=== PATIENT | male | born 1995 | race Caucasian/White ===

== ENCOUNTER 2017-11-26 09:04 | Emergency (ER) | payer BC, SELFPAY ==
[2017-11-26 09:08] VITALS: BP 128/77; PULSE 86; RESP 18; TEMP 36.1; O2SAT 96
--- NOTE | 2017-11-26 09:15 | DI.RAD_ITS ---
SYMPTOM/DIAGNOSIS: COUGH, WHEEZE PA AND LATERAL CHEST: 11/26 The heart is normal in size. The lungs are clear. The mediastinal structures and pleura appear intact. CONCLUSION: Normal chest.
--- NOTE | 2017-11-26 09:16 | W.ED.GENAD ---
Discharge Plan Disposition Patient Disposition: HOME Condition: Good Discharge Details Chief Complaint: RespSymp Clinical Impression: Acute bronchitis with bronchospasm ED Provider: Jaime Cabrera Home Meds and New Rx's Prescriptions: New azithromycin [Zithromax Z-Wilder] 250 mg tablet See Label Instructions .ROUTE .COMPLEX Qty: 6 RF: 0 prednisone 20 mg tablet 40 mg PO DAILY 5 Days Qty: 10 RF: 0 Discharge Instructions Instructions: Acute Bronchitis (ED) Additional Instructions: Home to rest today. Take medications as prescribed. Return for increased difficult breathing or any other acute concerns. Follow-up with regular doctor if not improved in 5 days time. Continue your efforts to decrease smoking Stand Alone Forms: Work Release Medical Decision Making 22-year-old male smoker presents with cough, congestion over days time. He is afebrile and interactive with normal oxygenation, speaking full sentences. Exam is notable for bilateral and expiratory wheeze. Patient given albuterol inhaler with instruction of spacer use at the bedside. He is referred for chest x-ray. Patient's radiograph without acute findings. He is improved with inhaler. I will prescribe him a Z-Wilder, burst dose of steroids for bronchitis with bronchospasm; discussed cessation of smoking which he states he only started 1 month ago HPI General Mode of arrival: ambulatory. Date/Time Provider Initiated Documentation: 11/26/17 09:11. Limitations to Documentation: no limitations. Information obtained by: patient. History of Present Illness 22 year old M presents to the emergency department with the chief complaint of Cough and shortness of breath, described as moderate, Quality is described as constant, and is localized to the chest. Patient started experiencing this day(s) and it has been constant. No relieving factors improve symptom(s), Other factors that worsen symptoms (Cigarettes) . Patient notes no other symptoms.. Patient did receive the following treatments prior to arrival, none HPI Narrative: 22-year-old male presents with 4-5 days of cough with production of sputum and now the development of shortness of breath. He relates that he recently started smoking 1 pack/day and this is irritated his cough as well. No fever, chest pain, recent travel or known sick contacts. Has been eating and drinking normally Related Data Home Medications Medication Instructions Recorded Confirmed azithromycin [Zithromax Z-Wilder] See Label Instructions .ROUTE 11/26/17 .COMPLEX #6 tab prednisone 40 mg PO DAILY 5 Days #10 tab 11/26/17 Previous Rx's Medication Instructions Recorded azithromycin [Zithromax Z-Wilder] See Label Instructions .ROUTE 11/26/17 .COMPLEX #6 tab prednisone 40 mg PO DAILY 5 Days #10 tab 11/26/17 Allergies Allergy/AdvReac Type Severity Reaction Status Date / Time No Known Allergies Allergy Unverified 11/26/17 09:15 General Stated Complaint: RespSymp ELIAN: 3 Review of Systems Review of Systems 8 systems reviewed and otherwise negative PFSH Social History Smoking/Tobacco Use Status: Current every day Exam Narrative Exam Narrative: GEN: awake, alert, oriented 3. Pleasant, well groomed, interactive. HEAD: Normocephalic, atraumatic ENT: Mucous membranes moist, oropharynx unremarkable, External ear exam unremarkable EYES: PERRL, EOMI NECK: Full ROM, no ELIZABETH, no menigismus CHEST/RESP: Nontender, bilateral end expiratory wheeze CARDIOVASCULAR: RRR, no murmur, rub ashlie. 2+ Rad pulse bilateral ABDOMEN: Soft, nontender, no mass. +Bowel sounds EXT: Full ROM, no edema, no rash Neuro: Grossly normal neurologic exam, conversant, interactive. Psych: Speech fluent, thoughts congruent, affect normal Course Vital Signs Temperature 36.1 C L 11/26/17 09:08 Pulse 86 11/26/17 09:08 Respiratory Rate 18 11/26/17 09:08 Blood Pressure 128/77 11/26/17 09:08 Pulse Oximetry 96 11/26/17 09:08 Temperature 36.1 C L 11/26/17 09:08 Temperature Source Skin 11/26/17 09:08 Pulse 86 11/26/17 09:08 Respiratory Rate 18 11/26/17 09:08 Respiratory Effort Short of Breath 11/26/17 09:12 Respiratory Depth Normal 11/26/17 09:12 Blood Pressure 128/77 11/26/17 09:08 Blood Pressure Position Sitting 11/26/17 09:08 Pulse Oximetry 96 11/26/17 09:08 Oxygen Delivery Method Room Air 11/26/17 09:08 Oxygen Flow Rate 0 11/26/17 09:08
--- NOTE | 2017-11-26 09:19 | ED.GENADUL_ITS ---
Discharge Plan Disposition Patient Disposition: HOME Condition: Good Discharge Details Chief Complaint: RespSymp Clinical Impression: Acute bronchitis with bronchospasm ED Provider: Jaime Cabrera Home Meds and New Rx's Prescriptions: New azithromycin [Zithromax Z-Wilder] 250 mg tablet See Label Instructions .ROUTE .COMPLEX Qty: 6 RF: 0 prednisone 20 mg tablet 40 mg PO DAILY 5 Days Qty: 10 RF: 0 Discharge Instructions Instructions: Acute Bronchitis (ED) Additional Instructions: Home to rest today. Take medications as prescribed. Return for increased difficult breathing or any other acute concerns. Follow- up with regular doctor if not improved in 5 days time. Continue your efforts to decrease smoking Stand Alone Forms: Work Release Medical Decision Making 22-year-old male smoker presents with cough, congestion over days time. He is afebrile and interactive with normal oxygenation, speaking full sentences. Exam is notable for bilateral and expiratory wheeze. Patient given albuterol inhaler with instruction of spacer use at the bedside. He is referred for chest x-ray. Patient's radiograph without acute findings. He is improved with inhaler. I will prescribe him a Z-Wilder, burst dose of steroids for bronchitis with bronchospasm; discussed cessation of smoking which he states he only started 1 month ago HPI General Mode of arrival: ambulatory . Date/Time Provider Initiated Documentation: 11/26/17 09:11 . Limitations to Documentation: no limitations . Information obtained by: patient . History of Present Illness 22 year old M presents to the emergency department with the chief complaint of Cough and shortness of breath, described as moderate, Quality is described as constant, and is localized to the chest. Patient started experiencing this day(s) and it has been constant. No relieving factors improve symptom(s ), Other factors that worsen symptoms (Cigarettes) . Patient notes no other symptoms.. Patient did receive the following treatments prior to arrival, none HPI Narrative: 22-year-old male presents with 4-5 days of cough with production of sputum and now the development of shortness of breath. He relates that he recently started smoking 1 pack/day and this is irritated his cough as well. No fever, chest pain, recent travel or known sick contacts. Has been eating and drinking normally Related Data Home Medications Medication Instructions Recorded Confirmed azithromycin [Zithromax Z-Wilder] See Label Instructions .ROUTE 11/26/17 .COMPLEX #6 tab prednisone 40 mg PO DAILY 5 Days #10 tab 11/26/17 Previous Rx's Medication Instructions Recorded azithromycin [Zithromax Z-Wilder] See Label Instructions .ROUTE 11/26/17 .COMPLEX #6 tab prednisone 40 mg PO DAILY 5 Days #10 tab 11/26/17 Allergies Allergy/AdvReac Type Severity Reaction Status Date / Time No Known Allergies Allergy Unverified 11/26/17 09:15 General Stated Complaint: RespSymp ELIAN: 3 Review of Systems Review of Systems 8 systems reviewed and otherwise negative PFSH Social History Smoking/Tobacco Use Status: Current every day Exam Narrative Exam Narrative: GEN: awake, alert, oriented 3. Pleasant, well groomed, interactive. HEAD: Normocephalic, atraumatic ENT: Mucous membranes moist, oropharynx unremarkable, External ear exam unremarkable EYES: PERRL, EOMI NECK: Full ROM, no ELIZABETH, no menigismus CHEST/RESP: Nontender, bilateral end expiratory wheeze CARDIOVASCULAR: RRR, no murmur, rub ashlie. 2+ Rad pulse bilateral ABDOMEN: Soft, nontender, no mass. +Bowel sounds EXT: Full ROM, no edema, no rash Neuro: Grossly normal neurologic exam, conversant, interactive. Psych: Speech fluent, thoughts congruent, affect normal Course Vital Signs Temperature 36.1 C L 11/26/17 09:08 Pulse 86 11/26/17 09:08 Respiratory Rate 18 11/26/17 09:08 Blood Pressure 128/77 11/26/17 09:08 Pulse Oximetry 96 11/26/17 09:08 Temperature 36.1 C L 11/26/17 09:08 Temperature Source Skin 11/26/17 09:08 Pulse 86 11/26/17 09:08 Respiratory Rate 18 11/26/17 09:08 Respiratory Effort Short of Breath 11/26/17 09:12 Respiratory Depth Normal 11/26/17 09:12 Blood Pressure 128/77 11/26/17 09:08 Blood Pressure Position Sitting 11/26/17 09:08 Pulse Oximetry 96 11/26/17 09:08 Oxygen Delivery Method Room Air 11/26/17 09:08 Oxygen Flow Rate 0 11/26/17 09:08
[2017-11-26] MEDS: Albuterol HFA 8 GM 60 PUFF INH IH (09:22)
--- NOTE | 2017-11-26 09:25 | NUR.NOTE ---
Nursing Note: After the Inhaler, on auscultation patients lungs had less wheezes present in all lung wharton.
[2017-11-26 09:46] VITALS: BP 116/92; PULSE 80; RESP 18; TEMP 36.6; O2SAT 96
== END 2017-11-26 09:46 | disposition home or self-care (01) ==
LOC: ER 10:13
PROVIDERS: Emergency Provider Emergency Medicine
DX: J20.9 Acute bronchitis, unspecified (principal); R06.02 Shortness of breath; F17.210 Nicotine dependence, cigarettes, uncomplicated
CPT/HCPCS: 99283; 71046

== ENCOUNTER 2018-04-04 14:15 | Emergency (ER) | payer OTHER, SELFPAY ==
[2018-04-04 14:29] VITALS: BP 116/72; PULSE 87; TEMP 36.5; O2SAT 97
--- NOTE | 2018-04-04 15:42 | ED.GENADUL_ITS ---
Discharge Plan Disposition Patient Disposition: HOME Condition: Stable Discharge Details Chief Complaint: Nk/Back Pain Clinical Impression: Lumbar contusion Reason For Visit: back injury /fall Primary Care Provider: None,None ED Provider: Patric Resendiz Home Meds and New Rx's Prescriptions: New cyclobenzaprine 10 mg tablet 10 mg PO TID PRN (Reason: pain) Qty: 30 RF: 0 Discharge Instructions Instructions: Contusion in Adults (ED) Additional Instructions: You can take 1000mg tylenol and 600mg ibuprofen every 6 hours for pain as needed if you have pain that continues next week follow up with your primary care provider If pain significantly worsens, you have difficulty urinating, or you have new symptoms such as difficulty breathing return to the emergency department Stand Alone Forms: Work Release Discharge Data Discharge Date/Time-TO BE ENTERED AT DEPARTURE: 04/04/18 17:12 Medical Decision Making <Rashel Mane NP - Last Filed: 04/04/18 22:37> Patient presenting to the emergency department for chief complaint of back pain. Patient states approximately 9 hours prior to arrival he was getting out of his car to start work and he slipped on the ice fell landing on his right side of his back. He states he worked all day but due to persistent pain and discomfort he is here for evaluation. Patient denies any numbness tingling, abdominal pain, nausea vomiting, head injury, hematuria, loss of consciousness. Patient does state persistent back pain. Physical exam shows tenderness to L4 and mild through lower lumbar spine otherwise physical exam findings are unremarkable. Given patient's size and spinal tenderness I do feel that radiological imaging is warranted otherwise I am highly suspicious of lumbar strain. Radiological imaging is ordered. Patient denies need for pain medication at this time. Pending results patient care transferred to Dr. Resendiz for review of radiological imaging, further treatment, and disposition. <Patric Resendiz MD - Last Filed: 04/04/18 17:02> Imaging Data Radiologic Study: Attestation: I personally reviewed and interpreted this imaging study as follows: Imaging: X-Ray Radiologist's impression: IMPRESSION: No fracture or subluxation. HPI <Rashel Mane NP - Last Filed: 04/04/18 22:37> General Mode of arrival: ambulatory . Date/Time Provider Initiated Documentation: 04/04/18 14:29 . Limitations to Documentation: no limitations . Information obtained by: patient and RN notes reviewed . History of Present Illness 23 year old M presents to the emergency department with the chief complaint of back pain, described as moderate, with intensity rated at 6. Quality is described as sharp, and is localized to the back. Patient started experiencing this hour(s) (9) and it has been constant. Movement worsens symptoms . Patient notes no other symptoms.. Patient did receive the following treatments prior to arrival, none Related Data Home Medications Medication Instructions Recorded Confirmed cyclobenzaprine 10 mg PO TID PRN #30 tab 04/04/18 Previous Rx's Medication Instructions Recorded cyclobenzaprine 10 mg PO TID PRN #30 tab 04/04/18 Allergies Allergy/AdvReac Type Severity Reaction Status Date / Time No Known Allergies Allergy Unverified 11/26/17 09:15 General Stated Complaint: Nk/Back Pain ELIAN: 4 Review of Systems <Rashel Mane NP - Last Filed: 04/04/18 22:37> Constitutional Denies chills, Denies fever(s), Denies frequent falls and Denies headache(s) ENT Denies headache(s) Cardiovascular Denies chest pain, Denies syncope and Denies dyspnea on exertion Respiratory Denies cough and Denies dyspnea on exertion Gastrointestinal Denies abdominal pain, Denies change in bowel habits, Denies diarrhea, Denies nausea and Denies vomiting Genitourinary Denies difficulty urinating and Denies urinary incontinence Musculoskeletal Reports as per HPI and Reports back pain Neurologic Denies confusion, Denies syncope, Denies frequent falls, Denies headache(s), Denies memory loss and Denies sensory deficit Psychiatric Denies confusion and Denies memory loss PFSH <Rashel Mane NP - Last Filed: 04/04/18 22:37> Social History Smoking and Tabacco status: Never Exam <Rashel Mane NP - Last Filed: 04/04/18 22:37> Const General: cooperative and no acute distress Orientation: alert, awake and oriented x3 Neck Neck: normal visual inspection, full ROM and no meningeal signs Resp Effort & Inspection: normal respiratory effort Auscultation: clear to auscultation bilaterally Cardio Rate: regular rate Rhythm: regular rhythm Heart Sounds: S1 normal and S2 normal GI Palpation: no hepatosplenomegaly, no aortic enlargement, no masses and no pulsatile masses Back/Spine/Pelvis Cervical Spine: normal cervical lordosis, cervical ROM normal and No cervical spinal tenderness Thoracic/Lumbar Spine: pain with thoraco-lumbar ROM, paraspinal tenderness, thoraco-lumbar ROM limited, No thoracic spinal tenderness, lumbar spinal tenderness (L4) and No straight leg raise positive Pelvis: no pain with anterior-posterior compression, no pain with lateral compression, buttock tenderness on the right and sciatic notch tenderness on the right Sacrum: no ecchymosis Coccyx: no swelling Neuro General: alert, awake and oriented x3 DTR's: Rt Patellar: 2+, Lt Patellar: 2+, Rt Ankle: 2+ and Lt Ankle: 2+ Course <Rashel Mane NP - Last Filed: 04/04/18 22:37> Vital Signs Temperature 36.5 C 04/04/18 14:29 Pulse 87 04/04/18 14:29 Blood Pressure 116/72 04/04/18 14:29 Pulse Oximetry 97 04/04/18 14:29 Temperature 36.5 C 04/04/18 14:29 Pulse 87 04/04/18 14:29 Respiratory Effort 04/04/18 14:32 Blood Pressure 116/72 04/04/18 14:29 Pulse Oximetry 97 04/04/18 14:29 Oxygen Delivery Method Room Air 04/04/18 14:29 Oxygen Flow Rate 0 04/04/18 14:29 Pain Level 6 04/04/18 14:29 Comment 04/04/18 14:29 Sign Out <Rashel Mane NP - Last Filed: 04/04/18 22:37> Sign Out Data: Sign Out Comment: Patient signed out to Dr. Romie Resendiz pending radiological imaging, any further treatments as needed, and disposition Last updated by Rashel Mane NP at 04/04/18 15:56 Post-Handoff Eval: pt's xray shows no acute findings, he remains stable and has no neuro deficits or saddle anesthesia. Suspect back contusion. Will prescribe muscle relaxers and advised f/u with pcp and return precautions given
--- NOTE | 2018-04-04 16:25 | DI.RAD_ITS ---
SYMPTOM/DIAGNOSIS: FALL, L-4 PAIN LUMBAR SPINE: AP and lateral views. No priors There are 5 lumbar type vertebral bodies. There is normal alignment. No acute fracture or subluxation seen. No definite spondylolysis or spondylolisthesis seen. The bones are normally mineralized. The disc spaces are well maintained. The sacroiliac joints appear grossly unremarkable. IMPRESSION: No acute fracture or subluxation in the lumbar spine.
--- NOTE | 2018-04-04 16:46 | DI.VRAD_ITS ---
EXAM: XR Lumbar Spine, 4 or 5 Views EXAM DATE/TIME: 04/04/2018 4:35 PM CLINICAL HISTORY: 23 years old, male; Pain; Low back pain; Patient HX: Fall this morning TECHNIQUE: XR of the lumbar spine, 4 or 5 views. COMPARISON: No relevant prior studies available. FINDINGS: Vertebrae: The pedicles appear congenitally shortened. No fracture or subluxation. The intervertebral disc spaces and vertebral body heights throughout the lumbar spine are well-maintained. Sacrum/coccyx: Intact sacroiliac joints. Soft tissues: Normal. Other findings: Normal bone density. IMPRESSION: No fracture or subluxation. Dictated and Authenticated by: Orlando Hargrove MD. Ordering:VÍCTOR Kiser MD
== END 2018-04-04 18:12 | disposition home or self-care (01) ==
PROVIDERS: Emergency Provider Emergency Medicine
DX: S30.0XXA Contusion of lower back and pelvis, initial encounter (principal); W00.0XXA Fall on same level due to ice and snow, initial encounter
CPT/HCPCS: 99283; 72110; 99282

== ENCOUNTER 2018-08-09 03:42 | Emergency (ER) | payer BC, SELFPAY ==
[2018-08-09 03:45] VITALS: BP 159/71; PULSE 90; RESP 16; TEMP 36.5; O2SAT 100
--- NOTE | 2018-08-09 03:57 | W.ED.GENAD ---
Discharge Plan Disposition Patient Disposition: HOME Condition: Good Discharge Details Chief Complaint: FacialProb Clinical Impression: Acute bacterial sinusitis Primary Care Provider: Christi Garcia V ED Provider: Tani Plummer [place] Meds and New Rx's Prescriptions: New amoxicillin-pot clavulanate 875-125 mg tablet 1 tab PO BID Qty: 20 RF: 0 fluticasone propionate 50 mcg/actuation spray,suspension 1 spray KRISTIN DAILY Qty: 9.9 RF: 0 Discharge Instructions Instructions: Sinusitis (ED) Additional Instructions: Take antibiotic as directed. The congestion and sinus washes may help. Fluticasone steroid nose drops as directed. Follow-up with primary care in 2 weeks if not better. Return to ED if high fevers, severe headache, altered mental status, vomiting, other concerns or problems. Referrals: Christi Garcia MD [Primary Care Provider] - Medical Decision Making Patient appears to have left maxillary sinusitis. Given the worsening course as well as it being almost 2 weeks now we will treat as bacterial. He is not febrile here. He is not toxic appearing. We will start him on Augmentin and Flonase. He does not have a PCP so will go on caseworker intake list for referral. Return to ED if worse. HPI General Mode of arrival: ambulatory. Date/Time Provider Initiated Documentation: 08/09/18 03:56. Limitations to Documentation: no limitations. Information obtained by: patient. HPI Narrative: Patient presents to ED with complaints of congestion, cough, left facial pain. Patient reports feeling like he has a fever but not ever documenting fever. Symptoms have been ongoing for 2 weeks and getting worse. He has been using [id number] medications like DayQuil and ibuprofen. Comes in this morning with worsening left-sided facial pain. He denies difficulty breathing. Related Data Home Medications Medication Instructions Recorded Confirmed amoxicillin-pot clavulanate 1 tab PO BID #20 tab 08/09/18 fluticasone propionate 1 spray KRISTIN DAILY #9.9 gm 08/09/18 Previous Rx's Medication Instructions Recorded amoxicillin-pot clavulanate 1 tab PO BID #20 tab 08/09/18 fluticasone propionate 1 spray KRISTIN DAILY #9.9 gm 08/09/18 Allergies Allergy/AdvReac Type Severity Reaction Status Date / Time No Known Allergies Allergy Unverified 08/09/18 03:48 General Stated Complaint: FacialProb ELIAN: 4 Review of Systems Review of Systems As documented in HPI otherwise negative as below. Const: no fever, chills, weakness Resp: positive cough; no SOB, pleuritic pain CV: no CP, diaphoresis, edema, syncope GI: no abdominal pain, nausea, vomiting, diarrhea Neuro: no headache, numbness, focal weakness, confusion PFSH Social History Smoking/Tobacco Use Status: Current every day Tobacco Type: e-cigarettes Alcohol Intake: current Alcohol Intake frequency: holidays/special occasions only Alcohol type: beer Drug use: Never Do you feel safe at home: Yes Do you feel safe in your relationship?: Yes Exam Narrative Exam Narrative: Vitals: Afebrile here. Mildly hypertensive. Vitals otherwise normal. Const: WDWN male in NAD. HEENT: NC/AT. Left maxillary tenderness. TMs clear B. Oropharynx with some cobblestoning and nasal drainage noted. Eyes: Normal conjunctiva and sclera. Neck: Supple. Trachea midline. Lungs: Normal respiratory effort. Lungs are clear. Cor: RRR without murmur/gallop. Good radial pulses. Neuro: A+O x 3. CN grossly in tact. Good strength and no focal deficit. Course Vital Signs Temperature 97.7 F 08/09/18 03:45 Pulse 90 08/09/18 03:45 Respiratory Rate 16 08/09/18 03:45 Blood Pressure 159/71 H 08/09/18 03:45 Pulse Oximetry 100 08/09/18 03:45 Temperature 97.7 F 08/09/18 03:45 Temperature Source Skin 08/09/18 03:45 Pulse 90 08/09/18 03:45 Respiratory Rate 16 08/09/18 03:45 Respiratory Effort Non-Labored 08/09/18 03:47 Blood Pressure 159/71 H 08/09/18 03:45 Blood Pressure Position Sitting 08/09/18 03:45 Pulse Oximetry 100 08/09/18 03:45 Oxygen Delivery Method Room Air 08/09/18 03:45 Oxygen Flow Rate 0 08/09/18 03:45 Pain Level 5 08/09/18 03:49
[2018-08-09] MEDS: Amoxicillin 875/Clav. 125 TAB PO (04:19)
--- NOTE | 2018-08-09 04:20 | ED.GENADUL_ITS ---
Discharge Plan Disposition Patient Disposition: HOME Condition: Good Discharge Details Chief Complaint: FacialProb Clinical Impression: Acute bacterial sinusitis Primary Care Provider: Christi Garcia V ED Provider: Tani Plummer [place] Meds and New Rx's Prescriptions: New amoxicillin-pot clavulanate 875-125 mg tablet 1 tab PO BID Qty: 20 RF: 0 fluticasone propionate 50 mcg/actuation spray,suspension 1 spray KRISTIN DAILY Qty: 9.9 RF: 0 Discharge Instructions Instructions: Sinusitis (ED) Additional Instructions: Take antibiotic as directed. The congestion and sinus washes may help. Fluticasone steroid nose drops as directed. Follow-up with primary care in 2 weeks if not better. Return to ED if high fevers, severe headache, altered mental status, vomiting, other concerns or problems. Referrals: Christi Garcia MD [Primary Care Provider] - Medical Decision Making Patient appears to have left maxillary sinusitis. Given the worsening course as well as it being almost 2 weeks now we will treat as bacterial. He is not febrile here. He is not toxic appearing. We will start him on Augmentin and Flonase. He does not have a PCP so will go on case management rn list for referral. Return to ED if worse. HPI General Mode of arrival: ambulatory . Date/Time Provider Initiated Documentation: 08/09/18 03:56 . Limitations to Documentation: no limitations . Information obtained by: patient . HPI Narrative: Patient presents to ED with complaints of congestion, cough, left facial pain. Patient reports feeling like he has a fever but not ever documenting fever. Symptoms have been ongoing for 2 weeks and getting worse. He has been using baxr-dgi-[id number] medications like DayQuil and ibuprofen. Comes in this morning with worsening left-sided facial pain. He denies difficulty breathing. Related Data Home Medications Medication Instructions Recorded Confirmed amoxicillin-pot clavulanate 1 tab PO BID #20 tab 08/09/18 fluticasone propionate 1 spray KRISTIN DAILY #9.9 gm 08/09/18 Previous Rx's Medication Instructions Recorded amoxicillin-pot clavulanate 1 tab PO BID #20 tab 08/09/18 fluticasone propionate 1 spray KRISTIN DAILY #9.9 gm 08/09/18 Allergies Allergy/AdvReac Type Severity Reaction Status Date / Time No Known Allergies Allergy Unverified 08/09/18 03:48 General Stated Complaint: FacialProb ELIAN: 4 Review of Systems Review of Systems As documented in HPI otherwise negative as below. Const: no fever, chills, weakness Resp: positive cough; no SOB, pleuritic pain CV: no CP, diaphoresis, edema, syncope GI: no abdominal pain, nausea, vomiting, diarrhea Neuro: no headache, numbness, focal weakness, confusion PFSH Social History Smoking/Tobacco Use Status: Current every day Tobacco Type: e-cigarettes Alcohol Intake: current Alcohol Intake frequency: holidays/special occasions only Alcohol type: beer Drug use: Never Do you feel safe at home: Yes Do you feel safe in your relationship?: Yes Exam Narrative Exam Narrative: Vitals: Afebrile here. Mildly hypertensive. Vitals otherwise normal. Const: WDWN male in NAD. HEENT: NC/AT. Left maxillary tenderness. TMs clear B. Oropharynx with some cobblestoning and nasal drainage noted. Eyes: Normal conjunctiva and sclera. Neck: Supple. Trachea midline. Lungs: Normal respiratory effort. Lungs are clear. Cor: RRR without murmur/gallop. Good radial pulses. Neuro: A+O x 3. CN grossly in tact. Good strength and no focal deficit. Course Vital Signs Temperature 97.7 F 08/09/18 03:45 Pulse 90 08/09/18 03:45 Respiratory Rate 16 08/09/18 03:45 Blood Pressure 159/71 H 08/09/18 03:45 Pulse Oximetry 100 08/09/18 03:45 Temperature 97.7 F 08/09/18 03:45 Temperature Source Skin 08/09/18 03:45 Pulse 90 08/09/18 03:45 Respiratory Rate 16 08/09/18 03:45 Respiratory Effort Non-Labored 08/09/18 03:47 Blood Pressure 159/71 H 08/09/18 03:45 Blood Pressure Position Sitting 08/09/18 03:45 Pulse Oximetry 100 08/09/18 03:45 Oxygen Delivery Method Room Air 08/09/18 03:45 Oxygen Flow Rate 0 08/09/18 03:45 Pain Level 5 08/09/18 03:49
--- NOTE | 2018-08-09 17:38 | NUR.NOTE ---
Nursing Note: Referral faxed to [facility] to establish care for the patient. Dr. Bustillos phone technician for telephone call. Dyan Tinsley.
== END 2018-08-09 04:33 | disposition home or self-care (01) ==
PROVIDERS: Emergency Provider Emergency Medicine; PCP Family Medicine
DX: J01.00 Acute maxillary sinusitis, unspecified (principal)
CPT/HCPCS: 99283

== ENCOUNTER 2020-03-25 18:30 | Emergency (ER) | payer BC, SELFPAY ==
[2020-03-25 18:43] VITALS: BP 153/79; PULSE 87; RESP 14; TEMP 36.6; O2SAT 97
--- NOTE | 2020-03-25 19:13 | ED.GENADUL_ITS ---
Discharge Plan Disposition Patient Disposition: HOME Condition: Stable Discharge Details Clinical Impression: Pain, dental Primary Care Provider: Christi Garcia V ED Provider: Sam Josue Home Meds and New Rx's Prescriptions: New amoxicillin 875 mg tablet 875 mg PO BID Qty: 20 RF: 0 Discharge Instructions Instructions: Toothache (ED) Additional Instructions: Amoxicillin as directed. Lrpp-fbg-dzvgyjw anti-inflammatory medication as directed. It appears as though you have some oxycodone left over from a previous prescription. You may take this as directed, remember this may cause drowsiness and/or constipation. No operating machinery while take this medication. You may want to use wrwb-ofc-znhkhce stool softener while taking his medication. Cool and/or warm compresses every 2 hours for 20 minutes. Salt water gargles as tolerated. Please watch for new or worsening symptoms and return to the ER for any concerns. Please contact your dentist on Saturday for prompt outpatient reevaluation. Medical Decision Making Patient presents with right lower dental pain that began a couple of days ago. He states that he quit smoking a few days ago and the pain began afterwards. His crown fell out roughly 1 year ago but really has not caused him any problems. He has oxycodone at home that he can take over the weekend but is concerned about infection. We discussed dental block which he declines. I did recommend salt water gargles and sdhd-[id number]-[id number] anti-inflammatory medication. He declines a dental list as he already has a dentist. We will give his first dose of amoxicillin now and provide him with a prescription. Patient has no additional questions or concerns and is comfortable discharge. HPI General Mode of arrival: ambulatory . Date/Time Provider Initiated Documentation: 03/25/20 19:10 . Limitations to Documentation: no limitations . Information obtained by: patient . HPI Narrative: This is a 25-year-old gentleman, denies any significant past medical history. He reports that his right lower molar had a crown that broke roughly 1 year ago. He states now over the past 2 days increased pain and concern for infection. He denies fever or facial swelling. Patient had an oxycodone from a previous injury, took before arrival. Pain was a 10 out of 10, now a 2 out of 10. Patient plans to call his dentist on Saturday during business hours. No additional questions or concerns. Related Data Home Medications Medication Instructions Recorded Confirmed amoxicillin 875 mg PO BID #20 tab 03/25/20 Previous Rx's Medication Instructions Recorded amoxicillin 875 mg PO BID #20 tab 03/25/20 Allergies Allergy/AdvReac Type Severity Reaction Status Date / Time No Known Allergies Allergy Unverified 03/25/20 18:48 General Stated Complaint: DentalOral ELIAN: 4 Review of Systems Constitutional Constitutional: Denies fever(s) and Denies headache(s) ENT Ears, Nose, Mouth, and Throat: Denies facial pain and Denies headache(s) Integumentary/Breasts Skin/Breast: Denies erythema Neurologic Neurologic: Denies headache(s) PFSH Social History Smoking/Tobacco Use Status: Former Tobacco Use Quit Date: 03/23/20 Smoking risk assessment performed?: Yes Alcohol Intake: current Alcohol Intake frequency: holidays/special occasions only Alcohol type: beer Drug use: Daily Substance use type: marijuana Do you feel safe at home: Yes Do you feel safe in your relationship?: Yes Exam Const General: cooperative, healthy appearing, comfortable and no acute distress Orientation: alert, awake and oriented x3 HENMT Head: normal to inspection, normocephalic and atraumatic Mouth: moist mucous membranes Teeth image: 1. Tooth is diffusely tender. There appears to be some decay down to the gumline. There is no pointing abscess or obvious drainage. Throat: posterior oropharynx normal and uvula midline Eyes General: appearance normal, both eyes and all related structures Conjunctivae: conjunctivae normal Sclera: sclerae normal Neck Neck: normal visual inspection, full ROM, no lymphadenopathy, no meningeal signs, trachea midline, supple and nontender Resp Effort & Inspection: normal respiratory effort and able to speak in complete sentences Auscultation: clear to auscultation bilaterally Cardio Rate: regular rate Rhythm: regular rhythm Skin General skin exam: no rashes or lesions noted Neuro General: patient alert, patient awake, moves all extremities and no focal motor deficits Sensory Exam: no sensory deficits noted Psych Appearance: grossly normal Mental Status: mental status grossly normal Course Vital Signs Vital signs: Vital Signs Temperature 36.6 C 03/25/20 18:43 Pulse 87 03/25/20 18:43 Respiratory Rate 14 03/25/20 18:43 Blood Pressure 153/79 H 03/25/20 18:43 Pulse Oximetry 97 03/25/20 18:43 Temperature 36.6 C 03/25/20 18:43 Temperature Source Skin 03/25/20 18:43 Pulse 87 03/25/20 18:43 Respiratory Rate 14 03/25/20 18:43 Respiratory Effort Non-Labored 03/25/20 18:47 Blood Pressure 153/79 H 03/25/20 18:43 Blood Pressure Position Sitting 03/25/20 18:43 Pulse Oximetry 97 03/25/20 18:43 Oxygen Delivery Method Room Air 03/25/20 18:43 Oxygen Flow Rate 0 03/25/20 18:43 Pain Level 2 03/25/20 18:43
[2020-03-25] MEDS: Amoxicillin 875 MG TAB PO ×2 (19:21→19:40)
== END 2020-03-25 21:40 | disposition home or self-care (01) ==
PROVIDERS: Emergency Provider Physician Assistant; PCP Family Medicine
DX: R68.84 Jaw pain (principal)
CPT/HCPCS: 99283

== ENCOUNTER 2020-06-20 16:02 | Outpatient (REF) | payer BC, SELFPAY ==
[2020-06-20 19:26] LABS: HCT 41.4 % (40.0-50.0); HGB 14.1 g/dL (13.5-17.5); MCH 30.7 pg (27.0-33.0); MCHC 34.1 % (32.0-36.0); MPV 12.3 fL (8.0-11.0); Platelet Count 207 10^3/uL (130-400); RDW 13.1 % (11.8-14.1); RDW-SD 42.9 fL; WBC 9.36 10^3/uL (4.4-10.8)
[2020-06-20 20:13] LABS: Hemoglobin A1C 5.1 % (<5.7)
[2020-06-22 10:45] LABS: HIV-1/2 Ag & Ab Screen Negative (Negative)
[2020-06-22 10:46] LABS: Syphilis Serology (RPR) Negative (Negative)
[2020-06-22 11:56] LABS: Hepatitis C Ab w Rflx HCV PCR Negative (Negative)
[2020-06-22 12:47] LABS: Chlamydia Result Negative (Negative); GC Result Negative (Negative)
== END 2020-06-20 16:03 | disposition home or self-care (01) ==
LOC: NCHCN 16:02
PROVIDERS: PCP Family Medicine; Visit Provider Nurse Practitioner Family
DX: Z00.00 Encounter for general adult medical examination without abnormal findings (principal); R63.4 Abnormal weight loss; Z68.27 Body mass index [BMI] 27.0-27.9, adult; Z11.4 Encounter for screening for human immunodeficiency virus [HIV]; Z13.1 Encounter for screening for diabetes mellitus; Z11.59 Encounter for screening for other viral diseases; Z11.3 Encounter for screening for infections with a predominantly sexual mode of transmission
CPT/HCPCS: 85027; 86803; 87389; 87491; 87591; 83036; 86592

== ENCOUNTER 2020-07-16 14:35 | Emergency (ER) | payer BC, SELFPAY ==
--- NOTE | 2020-07-16 14:38 | ED.GENADUL_ITS ---
Discharge Plan Disposition Patient Disposition: HOME Condition: Stable Discharge Details Clinical Impression: Laceration of right lower leg Primary Care Provider: Christi Garcai V ED Provider: Val Jarvis Home Meds and New Rx's Prescriptions: New cephalexin 500 mg capsule 500 mg PO TID 5 Days Qty: 15 RF: 0 Discharge Instructions Instructions: Laceration (ED) Additional Instructions: Keep wound clean and dry. Cover wound with bandage if risk of contamination. Otherwise you can keep the wound open to air if resting at home to allow edges to dry and heal. Your prescription has been sent electronically to your pharmacy. Call the pharmacy to make sure your prescription is ready before pickup. Take the prescription as directed. Return to the emergency department in 7 days for suture removal. Stand Alone Forms: Work Release Discharge Data Discharge Physician: Val Jarvis Medical Decision Making 24-year-old male presents with right lower leg laceration sustained on a piece of glass in a trash bag at at work. There is a 5 cm straight laceration noted on the right anterior proximal leg. Bleeding controlled. No evidence of bony injury, deformity or cellulitis. He is neurovascular intact. Patient referred for x-ray to rule out foreign body which was negative. Tetanus up-to-date. Wound closed with 8 nylon 4-0 sutures. Area irrigated and covered with bacitracin and dressing. Due to possible contamination of glass, will cover with prophylactic antibiotics. He was given 1 dose of Keflex here and prescription sent electronically to pharmacy. Advised to return to the ED in 7 days for suture removal. Usual and customary return precautions given prior to discharge. Medical Records Medical records reviewed: Yes I reviewed the patient's medical records. Imaging Data Radiologic Study: Radiologist's impression: XR TIB/FIB RT CLINICAL HISTORY:? cut R leg, r/o fracture/fx TECHNIQUE:? COMPARISON:? No exams were available for comparison FINDINGS: Multiple views were obtained.? There is an apparent soft tissue defect of the anterior aspect of the leg.? There is no associated fracture.? The bones appear intact.? 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 HPI General Mode of arrival: ambulatory . Date/Time Provider Initiated Documentation: 07/16/20 14:36 . Limitations to Documentation: no limitations . Information obtained by: patient . HPI Narrative: Patient is a 25-year-old male who presents with right leg laceration sustained while picking up a bag at work and cut with a sharp piece of glass. 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 He states the bag is dirty. He is unsure of his tetanus status. He denies any known foreign bodies within the leg. He denies any bony pain and has been able to ambulate. Related Data Home Medications Medication Instructions Recorded Confirmed cephalexin 500 mg PO TID 5 Days #15 cap 07/16/20 Previous Rx's Medication Instructions Recorded cephalexin 500 mg PO TID 5 Days #15 cap 07/16/20 Allergies Allergy/AdvReac Type Severity Reaction Status Date / Time No Known Allergies Allergy Unverified 07/16/20 16:28 General ELIAN: 4 Review of Systems All systems reviewed & are unremarkable except as noted in HPI and below PFSH Medical History (Updated 07/16/20 @ 16:24 by Val Jarvis DO) No significant past medical history Surgical History (Updated 07/16/20 @ 15:23 by Val Jarvis DO) H/O wisdom tooth extraction Social History Smoking/Tobacco Use Status: Former Tobacco Use Quit Date: 03/23/20 Smoking risk assessment performed?: Yes Alcohol Intake: current Alcohol Intake frequency: holidays/special occasions only Alcohol type: beer Drug use: Current Sobriety Substance use type: does not use Do you feel safe at home: Yes Do you feel safe in your relationship?: Yes Exam Const General: cooperative, healthy appearing and no acute distress [facility] Head: normal to inspection Mouth: oral mucosae normal Eyes General: appearance normal, both eyes and all related structures Neck Neck: normal visual inspection Resp Effort & Inspection: normal respiratory effort and able to speak in complete sentences Cardio Rate: regular rate Skin General skin exam: no rashes or lesions noted Neuro General: patient alert, patient awake and patient oriented x3 Motor: muscle tone normal throughout Extrem Upper/lower leg/hip images: 1. 5 cm straight laceration noted on right anterior proximal leg. Bleeding controlled. No obvious fracture or foreign body. No deformity, edema, ecchym osis or crepitus. Right radial and ulnar pulses intact. No evidence of bony injury. Normal range of motion of right lower extremity. Psych Appearance: grossly normal Affect: normal affect Procedures Laceration Laceration 1: Site: lower extremity Side (If applicable): right Size (cm): 5 Description: linear Depth: simple, single layer Local Anesthetic: Lidocaine 1% Amount of anesthesia used (mL): 20 Pre-repair: wound explored, irrigated extensively and deep structures intact Skin layer closed with: nylon Size (cm): 4-0 Number of sutures: 8 Technique: simple, interrupted
[2020-07-16 14:40] VITALS: BP 147/74; PULSE 79; RESP 16; O2SAT 98
--- NOTE | 2020-07-16 15:20 | DI.RAD_ITS ---
Exam(s) XR TIB/FIB RT EXAM: XR TIB/FIB RT CLINICAL HISTORY: cut R leg, r/o fracture/fx TECHNIQUE: COMPARISON: No exams were available for comparison FINDINGS: Multiple views were obtained. There is an apparent soft tissue defect of the anterior aspect of the leg. There is no associated fracture. The bones appear intact. Incidental note is made of a bipart ite patella. IMPRESSION: RADIATION DOSE DELIVERED: Total DLP
[2020-07-16] MEDS: Cephalexin 500 MG CAP PO (16:27)
[2020-07-16] MEDS: Cephalexin 500 MG CAP, 4 CAPS/BTL PO (16:27)
== END 2020-07-16 16:39 | disposition home or self-care (01) ==
PROVIDERS: Emergency Provider Physician Assistant; PCP Family Medicine
DX: S81.811A Laceration without foreign body, right lower leg, initial encounter (principal); W25.XXXA Contact with sharp glass, initial encounter; Y99.0 Civilian activity done for income or pay
CPT/HCPCS: 12002; 99283; 73590

== ENCOUNTER 2020-07-23 08:29 | Emergency (ER) | payer BC, SELFPAY ==
[2020-07-23 08:32] VITALS: BP 147/73; PULSE 87; RESP 16; TEMP 36.9; O2SAT 98
--- NOTE | 2020-07-23 08:33 | ED.GENADUL_ITS ---
Discharge Plan Disposition Patient Disposition: HOME Condition: Stable Discharge Details Clinical Impression: Visit for wound check Primary Care Provider: Christi Garcia V ED Provider: Val Jarvis Discharge Instructions Instructions: Acute Wound Care (ED) Additional Instructions: Keep wound clean and dry. Cover wound with bandage if risk of contamination. Otherwise you can keep the wound open to air if resting at home to allow edges to dry and heal. Return to the emergency department in 3 days for wound check and suture removal. Return to the emergency department at any time if you develop any persistent fevers, redness, swelling, pain or any other concerns. Stand Alone Forms: Work Release Discharge Data Discharge Physician: Val Jarvis Medical Decision Making 25-year-old male who is 7 days status post right leg suture placement after cut by a piece of glass in a trash bag at work. [address] to right lower leg wound. Wound appears to be healing without signs of cellulitis. The distal edges of wound appear in the early stages of healing and I feel that patient would benefit from keeping sutures in place for another 3 days. Patient advised to keep area clean and dry. He finished his Keflex. Advised to return here in 3 days for wound check and hopeful suture removal. Patient requests another work note. Medical Records Medical records reviewed: Yes I reviewed the patient's medical records. HPI General Mode of arrival: ambulatory . Date/Time Provider Initiated Documentation: 07/23/20 08:33 . Limitations to Documentation: no limitations . Information obtained by: patient . HPI Narrative: Patient is a 25-year-old male who is 7 days status post laceration to his right leg sustained on a sharp piece of glass from a trash bag at work presents for suture removal. Related Data Allergies Allergy/AdvReac Type Severity Reaction Status Date / Time No Known Allergies Allergy Unverified 07/16/20 16:28 General ELIAN: 4 Review of Systems All systems reviewed & are unremarkable except as noted in HPI and below PFSH Medical History (Updated 07/23/20 @ 08:43 by Val Jarvis DO) No significant past medical history Surgical History (Updated 07/16/20 @ 15:23 by Val Jarvis DO) H/O wisdom tooth extraction Social History Smoking/Tobacco Use Status: Former Tobacco Use Quit Date: 03/23/20 Smoking risk assessment performed?: Yes Alcohol Intake: current Alcohol Intake frequency: holidays/special occasions only Alcohol type: beer Drug use: Current Sobriety Substance use type: does not use Do you feel safe at home: Yes Do you feel safe in your relationship?: Yes Exam Const General: cooperative, healthy appearing and no acute distress HENMT Head: normal to inspection Mouth: oral mucosae normal Eyes General: appearance normal, both eyes and all related structures Neck Neck: normal visual inspection Resp Effort & Inspection: normal respiratory effort and able to speak in complete sentences Cardio Rate: regular rate Skin General skin exam: no rashes or lesions noted Neuro General: patient alert, patient awake and patient oriented x3 Motor: muscle tone normal throughout Extrem General: normal to inspection and full ROM Psych Appearance: grossly normal Affect: normal affect
== END 2020-07-23 08:50 | disposition home or self-care (01) ==
PROVIDERS: Emergency Provider Physician Assistant; PCP Family Medicine
DX: S81.811D Laceration without foreign body, right lower leg, subsequent encounter (principal); W25.XXXD Contact with sharp glass, subsequent encounter; Z48.02 Encounter for removal of sutures

== ENCOUNTER 2020-07-26 15:27 | Emergency (ER) | payer BC, SELFPAY ==
[2020-07-26 15:31] VITALS: BP 140/76; PULSE 81; TEMP 36.5; O2SAT 97
--- NOTE | 2020-07-26 15:36 | W.ED.GENAD ---
Discharge Plan Disposition Patient Disposition: HOME Condition: Stable Discharge Details Clinical Impression: Encounter for removal of sutures Primary Care Provider: Christi Garcia V ED Provider: Huyen Oneal Home Meds and New Rx's Prescriptions: No Action No Known Home Meds RF: 0 Discharge Instructions Instructions: Stitches Removal (ED) Additional Instructions: Keep clean and dry. You may cover with a Band-Aid if needed to prevent contamination. Return for any problems or concerns. Follow up with primary care provider in 3-5 days. Return to ED sooner if any worsening or concerns. Increase oral fluids. Referrals: Christi Garcia MD [Primary Care Provider] - Discharge Data Discharge Date/Time-TO BE ENTERED AT DEPARTURE: 07/26/20 16:01 Medical Decision Making 25-year-old male presents to the ER for suture removal. Patient had 8 simple interrupted sutures placed to his right anterior hawk 10 days ago. No signs of infection patient reports no complications during the course. Sutures removed. Discussed home care and strict return instructions, verbalized understanding. This text was generated using [employer] system, please disregard any oddities of phrase or misspellings. Medical Records Medical records reviewed: Yes I reviewed the patient's medical records. HPI General Mode of arrival: ambulatory. Date/Time Provider Initiated Documentation: 07/26/20 15:28. Limitations to Documentation: no limitations. Information obtained by: patient. HPI Narrative: 24-year-old male presents to the ER for suture removal to a laceration to his right anterior lower leg. On 16 July patient sustained a laceration from a piece of glass from a trash bag. Upon initial presentation there is 8 simple interrupted sutures placed without surrounding erythema, induration, drainage or signs of infection. Patient reports no problems at home. Related Data Home Medications Medication Instructions Recorded Confirmed Unknown [No Known Home Meds] 07/26/20 07/26/20 Allergies Allergy/AdvReac Type Severity Reaction Status Date / Time No Known Allergies Allergy Unverified 07/26/20 15:35 General Stated Complaint: SutureRem ELIAN: 5 Review of Systems All systems reviewed & are unremarkable except as noted in HPI and below Constitutional Constitutional: Denies fever(s) Integumentary/Breasts Skin/Breast: Denies new lesions, Denies non-healing lesions, Denies rash, Denies skin pain and Reports wounds (Laceration, with sutures noted.) [facility] Medical History (Updated 07/26/20 @ 15:40 by Huyen Oneal) No significant past medical history Surgical History (Updated 07/16/20 @ 15:23 by Val Jarvis DO) H/O wisdom tooth extraction Social History Smoking/Tobacco Use Status: Former Tobacco Use Quit Date: 03/23/20 Smoking risk assessment performed?: Yes Alcohol Intake: current Alcohol Intake frequency: holidays/special occasions only Alcohol type: beer Drug use: Current Sobriety Substance use type: does not use Do you feel safe at home: Yes Do you feel safe in your relationship?: Yes Exam Extrem Right lower extremity: lower leg Details: laceration (Well approximated laceration with 8 simple interrupted sutures no surrounding erythema, induration or signs of infection); no unusual warmth Upper/lower leg/hip images: 1. Sutured laceration Course Vital Signs Vital signs: Vital Signs Temperature 36.5 C 07/26/20 15:31 Pulse 81 07/26/20 15:31 Blood Pressure 140/76 07/26/20 15:31 Pulse Oximetry 97 07/26/20 15:31 Temperature 36.5 C 07/26/20 15:31 Temperature Source Temporal Artery Scan 07/26/20 15:31 Pulse 81 07/26/20 15:31 Respiratory Effort Non-Labored 07/26/20 15:33 Blood Pressure 140/76 07/26/20 15:31 Blood Pressure Position Sitting 07/26/20 15:31 Pulse Oximetry 97 07/26/20 15:31 Oxygen Delivery Method Room Air 07/26/20 15:31 Oxygen Flow Rate 0 07/26/20 15:31 Pain Level 0 07/26/20 15:35 Procedures Other Description: Suture removal: 8 simple interrupted sutures removed wound was well approximated no complications noted. Patient tolerated well.
== END 2020-07-26 16:01 | disposition home or self-care (01) ==
PROVIDERS: Emergency Provider Registered Nurse Emergency; PCP Family Medicine
DX: S81.811D Laceration without foreign body, right lower leg, subsequent encounter (principal); X58.XXXD Exposure to other specified factors, subsequent encounter; Z48.02 Encounter for removal of sutures